=== PATIENT | male | born 2000 | race African-American/Black ===

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

== ENCOUNTER 2021-05-07 22:41 | Emergency (ER) | payer SELFPAY ==
[~2021-05-07] VITALS: Ht 167.6 cm; Wt 86.4 kg
[2021-05-07 22:47] VITALS: TEMP 98
[2021-05-07] MEDS ORDERED: PROAIR HFA0.09 MG/AC IH (23:53)
[2021-05-07] MEDS ORDERED: PREDNISONE20 MG PO (23:53)
[2021-05-07 23:58] VITALS: BP 130/84; PULSE 97
== END 2021-05-07 23:59 | disposition home or self-care (01) ==
LOC: COL.ER 22:41
DX: J45.901 Unspecified asthma with (acute) exacerbation (principal); F17.200 Nicotine dependence, unspecified, uncomplicated; Z20.822 Contact with and (suspected) exposure to COVID-19
CPT/HCPCS: J7512

== ENCOUNTER 2021-08-01 12:35 | Emergency (ER) | payer SELFPAY ==
[~2021-08-01] VITALS: Ht 167.6 cm; Wt 84.1 kg
[~2021-08-01 12:35] MED LIST changes: +PREDNISONE20 MG PO
[2021-08-01 12:42] VITALS: BP 136/73; PULSE 87; TEMP 97.7
== END 2021-08-01 13:44 | disposition home or self-care (01) ==
LOC: COL.ER 12:35
DX: S63.634A Sprain of interphalangeal joint of right ring finger, initial encounter (principal); F17.210 Nicotine dependence, cigarettes, uncomplicated; X58.XXXA Exposure to other specified factors, initial encounter; Y93.6A Activity, physical games generally associated with school recess, summer camp and children